=== PATIENT | female | born 1990 | race Caucasian/White ===

== ENCOUNTER 2019-08-11 02:48 | Inpatient (IN) ==
[2019-08-11] MEDS ORDERED: DUONEB (A & A) INH ONE (03:10)
--- NOTE | 2019-08-11 03:15 | PROVIDER DOCUMENTATION ---
HPI-Respiratory General - General Chief Complaint: Shortness of Breath Stated Complaint: CHEST PAIN/SOB/ Time Seen by Provider: 08/11/19 03:00 Source: patient Allergies/Adverse Reactions: Patient Allergies Allergy/AdvReac Type Severity Reaction Status Date / Time No Known Allergies Allergy Verified 08/11/19 03:34 Home Medications: Home Medication List Medication Instructions Recorded Confirmed Last Taken Type NK [No Home Medications] 08/11/19 08/11/19 Unknown History - History of Present Illness-Resp Nature of Presenting Problem: 29 y/o WF c/o SOB and pleuritic cp for the past 4 days and was seen at [facility] for same last night but isnt sure what diagnosis she was given. Paper work sent from [facility] shows she was diagnosed with viral syndrome and that hep panel was pending. Quality of Pain: reports: aching Severity in ED: reports: moderate Onset/Duration: reports: 4 days ago Timing: reports: still present Context: reports: recent URI Exposure: reports: unknown cause Cough Quality/Degree: reports: mild Current Respiratory Medication Therapy: Initiated see nurses note Modifying Factors: improves with: exertion Associated Symptoms: reports: chest pain/soreness, hurts to breathe Similar Symptoms Previously?: Yes Recently seen or treated by another doctor?: Yes (At [facility] ) Review of Systems - Adult - REVIEW OF SYSTEMS - ADULT Constitutional: reports: no symptoms reported, see HPI Eyes: reports: no symptoms reported, see HPI Ears, Nose, Mouth & Throat: reports: no symptoms reported, see HPI Cardiovascular: reports: no symptoms reported, see HPI Respiratory: reports: see HPI, shortness of breath Gastrointestinal: reports: no symptoms reported, see HPI Genitourinary: reports: no symptoms reported, see HPI Musculoskeletal: reports: no symptoms reported, see HPI Integumentary: reports: no symptoms reported, see HPI Neurological: reports: no symptoms reported, see HPI Psychiatric: reports: no symptoms reported, see HPI Endocrine: reports: no symptoms reported, see HPI Hematologic/Lymphatic: reports: no symptoms reported, see HPI Allergic/Immunologic: reports: no symptoms reported, see HPI All Other Systems: Reviewed and Negative Past History - Adult - PAST MEDICAL HISTORY-ADULT Review of Records: reports: Nursing Assessment Review, Medications Reviewed, Social history reviewed & non-contributory. Physical Exam-General - PHYSICAL EXAM-ADULT Initial Vital Signs Reviewed: Yes - CONSTITUTIONAL General Appearance: appears well, alert, no apparent distress - EYES Eyes: PERRL/EOMI - HEAD, EARS, NOSE, MOUTH & THROAT HENMT: normocephalic/atraumatic, moist mucous membranes - NECK Neck: non-tender, full range of motion, supple, normal inspection - RESPIRATORY Respiratory: chest non-tender, lungs clear, no accessory muscle use, respiratory distress (mild), increased rate - CARDIOVASCULAR Cardiovascular: normal peripheral pulses, regular rate, rhythm, no edema, no gallop, no JVD, no murmur - GASTROINTESTINAL (ABDOMEN) Abdominal Exam: normal bowel sounds, soft, no organomegaly, no pulsatile mass, tenderness (RUQ abdo tenderness), Rush's sign - LYMPHATIC Lymphatic: no adenopathy - MUSCULOSKELETAL Back Exam: normal inspection, no CVA tenderness, no vertebral tenderness Extremity: normal range of motion, non-tender, normal gait, normal inspection, no pedal edema, no calf tenderness, normal capillary refill - SKIN Integumentary: normal color, normal turgor - NEUROLOGIC 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, grossly normal, no motor/sensory deficits - PSYCHIATRIC Psych/Mental Status: normal mood/affect, normal thought content, normal thought process, oriented x 3 - HEART Score HEART Score: History: Slightly Suspicious HEART Score: ECG: Non-Specific Repolarization Disturbance/LBBB/PM HEART Score: Age: < or = 45 Years HEART Score: Risk Factors for Atherosclerotic Disease: No Risk Factors Known HEART Score: Troponin: < or = Normal Limit Total HEART Score:: 1 Progress - PLAN OF CARE/RESULTS Progress/Plan/Lab Results: Vital Signs - 8 hr 08/11/19 06:00 08/11/19 07:00 08/11/19 08:00 Temperature 98.2 F Pulse Rate 107 H 100 H 100 H Respiratory Rate 26 H 46 H 32 H Blood Pressure 118/57 O2 Sat by Pulse Oximetry 94 L 98 96 Laboratory Results - last 24 hr 08/11/19 08/11/19 08/11/19 03:10 03:10 03:39 WBC Cancelled RBC Cancelled Hgb Cancelled Hct Cancelled MCV Cancelled MCH Cancelled MCHC Cancelled RDW Std Deviation Cancelled Plt Count Cancelled MPV Cancelled Immature Gran % (Auto) Cancelled Neut % (Auto) Cancelled Lymph % (Auto) Cancelled [place] % (Auto) Cancelled Eos % (Auto) Cancelled Baso % (Auto) Cancelled Immature Gran # (Auto) Cancelled Neut # (Auto) Cancelled Lymph # (Auto) Cancelled [place] # (Auto) Cancelled Eos # (Auto) Cancelled Baso # (Auto) Cancelled Corrected WBC (Man) Cancelled PT INR PTT (Actin FS) D-Dimer, Quantitative Sodium Potassium Chloride Carbon Dioxide Anion Gap BUN Creatinine Estimated GFR/1.73 m2 BUN/Creatinine Ratio Glucose Calculated Osmolality Calcium Total Bilirubin AST ALT Alkaline Phosphatase Troponin T Yap-X-Frlqkuyovkh Pept Total Protein Albumin Globulin Albumin/Globulin Ratio Plasma Lactate Urine Source CLEAN CATCH Urine Color YELLOW Urine Turbidity TURBID Urine pH 6.0 Ur Specific [place] 1.022 Urine Protein 200 A Ur Glucose (Stick) NEGATIVE Ur Ketones (Stick) NEGATIVE Urine Blood MODERATE A Urine Nitrite NEGATIVE Urine Bilirubin MODERATE A Urobilinogen Dipstick NORMAL Urine Leukocytes NEGATIVE Urine WBC (Auto) 10-20 A Urine RBC (Auto) TNTC A U Epithel Cells (Auto) >10 A Urine Bacteria (Auto) 2+ Urine Opiates Screen NONE DETECTED Ur Oxycodone Screen NONE DETECTED Ur Methadone, Qual NONE DETECTED Ur Barbiturates Screen NONE DETECTED Ur Phencyclidine Scrn NONE DETECTED Ur Amphetamines Screen NONE DETECTED U Benzodiazepines Scrn NONE DETECTED Urine Cocaine Screen NONE DETECTED U Cannabinoids Screen NONE DETECTED 08/11/19 08/11/19 08/11/19 03:39 03:39 03:39 WBC RBC Hgb Hct MCV MCH MCHC RDW Std Deviation Plt Count MPV Immature Gran % (Auto) Neut % (Auto) Lymph % (Auto) [place] % (Auto) Eos % (Auto) Baso % (Auto) Immature Gran # (Auto) Neut # (Auto) Lymph # (Auto) [place] # (Auto) Eos # (Auto) Baso # (Auto) Corrected WBC (Man) PT INR PTT (Actin FS) D-Dimer, Quantitative 17.06 H Sodium 133 L Potassium 3.7 Chloride 97 L Carbon Dioxide 19 L Anion Gap 17 BUN 26 H Creatinine 1.1 H Estimated GFR/1.73 m2 59 BUN/Creatinine Ratio 24 Glucose 122 H Calculated Osmolality 272 Calcium 8.5 L Total Bilirubin 5.47 H AST 157 H ALT 94 H Alkaline Phosphatase 157 H Troponin T Ily-X-Adhqlahsmft Pept 175 Total Protein 5.8 L Albumin 3.9 Globulin 1.9 Albumin/Globulin Ratio 2.1 Plasma Lactate Urine Source Urine Color Urine Turbidity Urine pH Ur Specific [place] Urine Protein Ur Glucose (Stick) Ur Ketones (Stick) Urine Blood Urine Nitrite Urine Bilirubin Urobilinogen Dipstick Urine Leukocytes Urine WBC (Auto) Urine RBC (Auto) U Epithel Cells (Auto) Urine Bacteria (Auto) Urine Opiates Screen Ur Oxycodone Screen Ur Methadone, Qual Ur Barbiturates Screen Ur Phencyclidine Scrn Ur Amphetamines Screen U Benzodiazepines Scrn Urine Cocaine Screen U Cannabinoids Screen 08/11/19 08/11/19 08/11/19 03:39 04:05 04:05 WBC 1.98 L RBC 4.90 Hgb 14.5 Hct 40.6 MCV 82.9 MCH 29.6 MCHC 35.7 RDW Std Deviation 13.2 Plt Count 42 L MPV Not Reportable Immature Gran % (Auto) 0.0 Neut % (Auto) 77.8 H Lymph % (Auto) 13.1 L [place] % (Auto) 8.1 Eos % (Auto) 0.0 Baso % (Auto) 1.0 H Immature Gran # (Auto) 0.00 Neut # (Auto) 1.54 Lymph # (Auto) 0.26 L [place] # (Auto) 0.16 Eos # (Auto) 0.00 Baso # (Auto) 0.02 Corrected WBC (Man) PT INR PTT (Actin FS) D-Dimer, Quantitative Sodium Potassium Chloride Carbon Dioxide Anion Gap BUN Creatinine Estimated GFR/1.73 m2 BUN/Creatinine Ratio Glucose Calculated Osmolality Calcium Total Bilirubin AST ALT Alkaline Phosphatase Troponin T < 0.010 Bcq-Y-Uczucyfrjdh Pept Total Protein Albumin Globulin Albumin/Globulin Ratio Plasma Lactate 2.1 Urine Source Urine Color Urine Turbidity Urine pH Ur Specific [place] Urine Protein Ur Glucose (Stick) Ur Ketones (Stick) Urine Blood Urine Nitrite Urine Bilirubin Urobilinogen Dipstick Urine Leukocytes Urine WBC (Auto) Urine RBC (Auto) U Epithel Cells (Auto) Urine Bacteria (Auto) Urine Opiates Screen Ur Oxycodone Screen Ur Methadone, Qual Ur Barbiturates Screen Ur Phencyclidine Scrn Ur Amphetamines Screen U Benzodiazepines Scrn Urine Cocaine Screen U Cannabinoids Screen 08/11/19 08/11/19 08/11/19 04:05 08:27 11:30 WBC RBC Hgb Hct MCV MCH MCHC RDW Std Deviation Plt Count MPV Immature Gran % (Auto) Neut % (Auto) Lymph % (Auto) [place] % (Auto) Eos % (Auto) Baso % (Auto) Immature Gran # (Auto) Neut # (Auto) Lymph # (Auto) [place] # (Auto) Eos # (Auto) Baso # (Auto) Corrected WBC (Man) PT 18.2 H INR 1.48 PTT (Actin FS) 51.2 H D-Dimer, Quantitative Sodium Potassium Chloride Carbon Dioxide Anion Gap BUN Creatinine Estimated GFR/1.73 m2 BUN/Creatinine Ratio Glucose Calculated Osmolality Calcium Total Bilirubin AST ALT Alkaline Phosphatase Troponin T Bkj-R-Xxdsbeiklxo Pept Total Protein Albumin Globulin Albumin/Globulin Ratio Plasma Lactate 2.0 1.8 Urine Source Urine Color Urine Turbidity Urine pH Ur Specific [place] Urine Protein Ur Glucose (Stick) Ur Ketones (Stick) Urine Blood Urine Nitrite Urine Bilirubin Urobilinogen Dipstick Urine Leukocytes Urine WBC (Auto) Urine RBC (Auto) U Epithel Cells (Auto) Urine Bacteria (Auto) Urine Opiates Screen Ur Oxycodone Screen Ur Methadone, Qual Ur Barbiturates Screen Ur Phencyclidine Scrn Ur Amphetamines Screen U Benzodiazepines Scrn Urine Cocaine Screen U Cannabinoids Screen Orders Category Date Time Status Cardiac Monitoring DIRECTED Care 08/11/19 04:19 Active IV Insertion ORDERED Care 08/11/19 04:19 Completed Notify MD of + Sepsis Screen NOW Care 08/11/19 04:19 Completed Notify Physician As Ordered Care 08/11/19 04:19 Active Nursing- Obtain EKG ONCE Care 08/11/19 03:[address] ANGIOGRM PULMONARY ARTERIES [CT] Stat Exams 08/11/19 04:22 Completed LUNG SCAN / VQ [NM] Stat Exams 08/11/19 05:31 Completed US GB < RUQ (LIMITED) [US] Stat Exams 08/11/19 05:27 Completed cxr [CHEST-1 VIEW] [RAD] Stat Exams 08/11/19 03:01 Completed BLOOD CULTURE [BLDCUL] Stat Lab 08/11/19 05:02 Results CBC WITH ELECTRONIC DIFF [HEME] Stat Lab 08/11/19 04:05 Completed COMPREHENSIVE METABOLIC PANEL [CHEM] Stat Lab 08/11/19 03:39 Completed D-DIMER [COAG] Stat Lab 08/11/19 03:39 Completed LACTATE, PLASMA [CHEM] Lab 08/11/19 08:27 Completed LACTATE, PLASMA [CHEM] Lab 08/11/19 11:30 Completed LACTATE, PLASMA [CHEM] Q3H Lab 08/11/19 04:05 Completed PRO B-NATRIURETIC PEPTIDE Stat Lab 08/11/19 03:39 Completed PROTIME WITH INR [COAG] Stat Lab 08/11/19 04:05 Completed PTT [COAG] Stat Lab 08/11/19 04:05 Completed TROPONIN T Stat Lab 08/11/19 03:39 Completed URINALYSIS W/POSS RFLX CULT [URINALYSIS] Stat Lab 08/11/19 03:10 Completed URINE CULTURE [RM] Routine Lab 08/11/19 09:06 Received URINE DRUG SCREEN Stat Lab 08/11/19 03:10 Completed 0.9% Sodium Chloride Inj [Ns] 1,000 ml Med 08/11/19 05:33 Discontinued IV 999 mls/hr Albuterol 2.5MG/Ipratrop 0.5MG [Duoneb (A & A)] Med 08/11/19 03:10 Discontinued 3 ml INH NOW ONE Ondansetron [Zofran] Med 08/11/19 08:24 Discontinued 8 mg IV NOW ONE Aerosol Treatments Routine Oth 08/11/19 03:10 Completed Aerosol Treatments Stat Oth 08/11/19 03:10 Completed Oxygen Device Stat Oth 08/11/19 04:19 Completed EKG [EKG] Stat Ther 08/11/19 03:01 Draft Venous U/S Bilateral Legs Stat Ther 08/11/19 05:27 Completed Transfer/Admit Order [TRANSFER] Routine Transfer 08/11/19 13:03 Ordered Result Diagrams: 08/11/19 04:05 08/11/19 03:39 - EKG 1 Time of EKG reading by physician:: 03:42 EKG Read and Signed by:: Tello Rojas EKG Interpretation (*Must complete 3 of following elements*): Abnormal Rate: 105 Rhythm: sinus tachy Butler: normal QRS: normal DC Interval: normal ST Wave: normal - CT/MRI 1 CT Study: Angiogram (Discussed CTA with radiologist who noted that he was unable to rule out PTE.) - ULTRASOUND (By Radiology) 1 US Study: Gallbladder Impression: Abnormal (EXAM: US GB < RUQ (LIMITED) INDICATION: RUQ pain COMPARISON: None. FINDINGS: The gallbladder is contracted. The gallbladder vicente aren't thickened measuring up to 5 mm. However, this may be due to the contraction, at least in part. No shadowing gallstones are identified. The common bile duct is normal in diameter. Sonographic Rush's sign was reported to be negative. The liver echotexture is diffusely increased indicating hepatic steatosis. The liver is very mildly prominent measuring up to 18.7 cm in length. No discrete hepatic mass is identified. Portal venous flow is hepatopetal. The pancreas is obscured by bowel gas. Part of the aorta and IVC are obscured. The visualized portions are unremarkable. The right kidney is grossly unremarkable. IMPRESSION: 1.Thickened gallbladder wall. However, this may be, at least in part, because the gallbladder is contracted. No gallstones are identified. 2.Hepatic steatosis. Electronically signed by Linwood Alonso 08/11/2019 8:03 AM 08/11/19 0803 Interpreting Physician: Linwood Alonso MD Dictated Date/Time: 08/11/19 0758 cc: Tello Rojas MD; None,PCP) - CHANGE OF SHIFT REPORT (ED Provider) 1 Report Given and Care Transferred to:: Dr Crawofrd Time of Transfer: 07:00 Items Pending: Labs, XRAY Results, Other (VQ lung scan result) Departure - Departure Date of Disposition Decision: 08/11/19 Time of Disposition Decision: 13:30 DIAGNOSIS: Cholecystitis, Leukopenia Disposition: ADMITTED INPATIENT 09 Certified Medical Emergency: Emergent Condition: Good - Critical Care Note This patient required my direct & personal management of CC.: No Attestation - Physician/ SALMA Attestation Patient care was provided by Advanced Practice Provider:: No The physician spent face to face time with patient:: Yes Advanced Practice Provider documentation review:: Supervising physician onsite and consulted in the evaluation and care of this patient. The physician did have a face to face encounter with the patient.
--- NOTE | 2019-08-11 03:50 | EKG Report ---
Test Performed on : 08/11/2019 03:42:22 AM Test Reason : sob Blood Pressure : / mmHG Vent. Rate : 105 BPM Atrial Rate : 105 BPM P-R Int : 136 ms QRS Dur : 076 ms QT Int : 328 ms P-R-T Axes : 055 016 038 degrees QTc Int : 433 ms Sinus tachycardia. Otherwise normal ECG No previous ECGs available Unconfirmed Result
[2019-08-11 04:07] LABS: ALB/GLOB RATIO 2.1; ALBUMIN 3.9 g/dL (3.5-5.0); CALCIUM 8.5 mg/dL (8.8-10.2); CREATININE 1.1 mg/dL (0.5-0.9); POTASSIUM 3.7 mmol/L (3.5-5.1); TOTAL BILIRUBIN 5.47 mg/dL (0.20-1.00); TOTAL PROTEIN 5.8 g/dL (6.3-8.3)
[2019-08-11 04:29] LABS: URINE SOURCE CLEAN CATCH
[2019-08-11 04:41] LABS: BASO# 0.02 X1000 (0.0-0.2); HEMATOCRIT 40.6 % (37.0-47.0); HEMOGLOBIN 14.5 g/dL (12.0-16.0); LYMPH# 0.26 X1000 (1.2-3.4); LYMPH% 13.1 % (20.5-51.1); MCH 29.6 PG (27-31); MCHC 35.7 g/dL (33-37); MCV 82.9 FL (81-99); MONO# 0.16 X1000 (0.11-0.59); MONO% 8.1 % (1.7-9.3); NEUT# 1.54 X1000 (1.4-6.5); NEUT% 77.8 % (42.2-75.2); PLT 42 X1000 (130-400); RDW 13.2 % (11.5-14.5); WBC 1.98 X1000 (4.8-10.8)
[2019-08-11 04:52] LABS: UR AMPHETAMINES QUAL NONE DETECTED (NONE DETECT); UR BARBITUATES QUAL NONE DETECTED (NONE DETECT); UR BENZODIAZEPIN QUAL NONE DETECTED (NONE DETECT); UR CANNABINOIDS QUAL NONE DETECTED (NONE DETECT); UR COCAINE QUAL NONE DETECTED (NONE DETECT); UR METHADONE QUAL NONE DETECTED (NONE DETECT); UR OPIATES QUAL NONE DETECTED (NONE DETECT); UR OXYCODONE QUAL NONE DETECTED (NONE DETECT); UR PCP QUAL NONE DETECTED (NONE DETECT)
[2019-08-11 04:56] LABS: BILIRUBIN URINE MODERATE (NEGATIVE); BLOOD URINE MODERATE (NEGATIVE); COLOR YELLOW; GLUCOSE URINE NEGATIVE (NEGATIVE); KETONE URINE NEGATIVE (NEGATIVE); LEUKOCYTES URINE NEGATIVE (NEGATIVE); NITRITE URINE NEGATIVE (NEGATIVE); PROTEIN URINE 200 mg/dL (NEGATIVE); SP GRAVITY URINE 1.022; TURBIDITY URINE TURBID (CLEAR); UROBILINOGEN URINE NORMAL (NORMAL)
[2019-08-11 04:58] LABS: UR EPITHELIAL CELLS >10 /HPF (<10); URINE BACTERIA 2+ /HPF; URINE RBC TNTC /HPF (<10)
[2019-08-11 04:59] LABS: INR 1.48; PROTIME 18.2 Seconds (11.0-16.0)
[2019-08-11 05:00] LABS: PTT 51.2 Seconds (22.3-41.8)
--- NOTE | 2019-08-11 05:14 | Diag Imaging Result Doc PS360 ---
EXAM: CT ANGIOGRM PULMONARY ARTERIES HISTORY: difficulty breathing, left arm swollen TECHNIQUE: CT chest with intravenous contrast. Pulmonary arterial protocol with MIP images. COMPARISON: None. FINDINGS: Suboptimal opacification of the pulmonary arteries. No large filling defects in the main pulmonary arteries. No aortic aneurysm or dissection. No cardiomegaly. No pleural effusions. There are small mediastinal nodes. No infiltrates. No bronchiectasis. Limited images through the upper abdomen reveal pronounced fatty infiltration of the liver. The spleen is enlarged measuring at least 14.1 cm. Possible thickening of the gallbladder wall. IMPRESSION: 1.Suboptimal opacification of the pulmonary arteries. No large central pulmonary embolus. 2.Possible gallbladder wall thickening. Further imaging may be beneficial. 3.Hepatomegaly with fatty infiltration 4.Splenomegaly This exam was performed using automated exposure control, adjustment of mA or kV according to patient size, and/or use of iterative reconstruction technique. Electronically signed by Wilfred Jacob 08/11/2019 5:11 AM
[2019-08-11] MEDS ORDERED: NS 1,000 ML IV ONE (05:33)
--- NOTE | 2019-08-11 07:34 | Diag Imaging Result Doc PS360 ---
EXAM: CHEST-1 VIEW HISTORY: sob TECHNIQUE: Chest single view COMPARISON: None. FINDINGS: Poor inspiratory effort. The heart is not enlarged. The vessels are not distended. There are no infiltrates. No effusion identified. IMPRESSION: Negative exam. Electronically signed by Wilfred Jacob 08/11/2019 7:32 AM
--- NOTE | 2019-08-11 08:05 | Diag Imaging Result Doc PS360 ---
EXAM: US GB < RUQ (LIMITED) INDICATION: RUQ pain COMPARISON: None. FINDINGS: The gallbladder is contracted. The gallbladder vicente aren't thickened measuring up to 5 mm. However, this may be due to the contraction, at least in part. No shadowing gallstones are identified. The common bile duct is normal in diameter. Sonographic Rush's sign was reported to be negative. The liver echotexture is diffusely increased indicating hepatic steatosis. The liver is very mildly prominent measuring up to 18.7 cm in length. No discrete hepatic mass is identified. Portal venous flow is hepatopetal. The pancreas is obscured by bowel gas. Part of the aorta and IVC are obscured. The visualized portions are unremarkable. The right kidney is grossly unremarkable. IMPRESSION: 1.Thickened gallbladder wall. However, this may be, at least in part, because the gallbladder is contracted. No gallstones are identified. 2.Hepatic steatosis. Electronically signed by Linwood Alonso 08/11/2019 8:03 AM
[2019-08-11] MEDS ORDERED: ZOFRAN IV ONE (08:24)
--- NOTE | 2019-08-11 11:53 | Diag Imaging Result Doc PS360 ---
EXAM: LUNG SCAN / VQ 08/11/2019 HISTORY: possible PE TECHNIQUE: Ventilation/perfusion lung scan COMMENT: The patient received 41.2 mCi of technetium 99m DTPA aerosol for the ventilation portion the study and 5.5 mCi of technetium 99m MAA intravenously for the perfusion portion. There are no apparent perfusion defects. There is no evidence of ventilation/perfusion mismatch. IMPRESSION: Normal study. Electronically signed by Miguelito Douglas 08/11/2019 11:51 AM
[2019-08-11] MEDS ORDERED: ZOFRAN IV PRN (14:03)
[2019-08-11] MEDS ORDERED: VANCOMYCIN IV PER PHARMACY MISC SCH (14:03)
[2019-08-11] MEDS: ZOSYN 3.375 GM in NS 50 ML IV SCH ×2 (14:11→20:31)
[2019-08-11] MEDS: NS 1,000 ML IV SCH (14:11)
--- NOTE | 2019-08-11 14:13 | HISTORY AND PHYSICAL ---
HISTORY: Mrs. Salazar was admitted on 08/11/2019. Apparently, she went to the [facility] yesterday. She has had 4 days of feeling short of breath and fatigue and abdominal pain. She has not been able to eat very well she reported. She denies alcohol or illicit drugs. Really no significant past medical history that we can determine. She came to our emergency room. She is very lethargic, some nausea. She is not vomiting, but she complains of nausea and complains of being short of breath. FAMILY HISTORY: She does not report any known family medical problems. SOCIAL HISTORY: Negative for alcohol or tobacco. She does smoke maybe 2 or 3 cigarettes a day, but no illicit drugs. Denies marijuana, cocaine. She does have a dog and a cat. She did have some scratches on her lower legs. REVIEW OF SYSTEMS: Really not able to give us much but she feels like she has not been able to eat very much, poor appetite, nausea, abdominal pain that radiates across the mid abdomen, which seems to be more intense, shortness of breath even at rest.Cardiovascular: No chest pain or tachy palpitations GI/: Does not report any bleeding. She has had a little constipation. Endocrinologic/Hematologic: We do not have any history. PHYSICAL EXAMINATION: She is very lethargic, short of breath. Difficult for her to even answer questions because of her labored breathing. She complains of abdominal pain across the mid abdomen all the way across and is complaining of nausea. VITAL SIGNS: Temp 98.2 degrees, pulse 100, respirations 32, blood pressure 118/57. HEENT: Pupils are equal and round. Conjunctivae is pink, sclera is clear. No nasal mucosal lesions appreciated. She does have numerous piercing's in her lip and her nose and her ear. None of them appear to have surrounding inflammation or cellulitis. ABDOMEN: Soft, nondistended. She does have striae on both sides of the abdomen. LUNGS: Clear anterolateral. CARDIOVASCULAR: Regular rhythm rate without murmur or S3. PMI nondisplaced. Carotid, radial and femoral pulses 2+ and symmetrical. EXTREMITIES: No pedal edema. She has superficial scratch haney on both legs. I do not appreciate any other rash. LABORATORY DATA: White blood cell count 1980, hematocrit is 40, platelet count is 42,000. Sodium 133, potassium 3.7, chloride 97, BUN 26, creatinine 1.1, blood sugar 122, calcium 8.5, total bilirubin is 5.47, AST is 157, ALT is 94, alkaline phosphatase is 157. Urine drug screen negative for opiates, oxycodone, methadone, barbiturates, phencyclidine, amphetamines, benzodiazepines, cocaine, and cannabinoids. Urinalysis: Too numerous to count red blood cells, white blood cells, 10 to 20 2+ bacteria. Abdominal ultrasound: Thickened gallbladder wall, however, this may be a least in part because the gallbladder is contracted. No gallstones identified. Hepatic steatosis. Lung V/Q scan was normal study. No sign of pulmonary thromboemboli. Chest x-ray negative exam. Poor inspiratory effort. Heart was not enlarged. Vessels were not distended. No infiltrates or effusion identified. ASSESSMENT/PLAN: 1. Patient appears to be septic and with a low count, I am not sure if this is a viral syndrome or an overwhelming bacterial infection. We will cover empirically with Zosyn and with vancomycin. I am going to ask Dr. Holly to help us follow along. I think we are going to need to check CMV titers, mononucleosis titers, hepatitis profile and HIV status. She denies IV drugs. I did not ask her about sexual history. 2. Note that her prothrombin time is mildly elevated. INR is 1.48, PTT is 51, D-dimer 17 so we are going to check a DIC profile and will going to give her liberal fluids, give her normal saline run it at 125 mL an hour. We will give her some antiemetics using Zosyn, put her on just clear liquids for now as far as diet. We will check both of her legs to make sure there is no deep venous thrombosis. She does have an elevated D-dimer. cc: Teddy Guzman MD
[2019-08-11] MEDS ORDERED: VANCOMYCIN 2 GM in NS 500 ML IV SCH (16:00)
[2019-08-11 16:15] LABS: RETIC% 0.62 % (0.8-2.1); RETIC-HE 25.5 PG (28.2-36.6)
[2019-08-11 19:11] LABS: INR MIXING STUDY 0 MIN 1.04; INR MIXING STUDY 30 MIN 1.13; PROTIME MIXING STUDY 3O MIN 14.7 Seconds (9.2-11.7); PROTIME MIXING STUDY O MIN 13.7 Seconds (9.2-11.7); PTT MIXING STUDY O MIN 30.4 Seconds (22.0-36.0)
[2019-08-11 19:12] LABS: PTT MIXING STUDY 3O MIN 39.9 Seconds (22.0-36.0)
[2019-08-11 19:16] LABS: LEUKEMIA LYMPHOMA BY FLOW REFERRED FOR TESTING
[2019-08-11 19:17] LABS: FLOW CYTOMETERY SOURCE WHOLE BLOOD
--- NOTE | 2019-08-11 19:26 | INFECTIOUS DISEASE CONSULT REP ---
DATE: 08/11/2019 CONCLUSION: The patient I think has either cholecystitis and/or a urinary tract infection. RECOMMENDATIONS: I agree with treating the patient with Zosyn. I have discontinued vancomycin. I have ordered a HIDA scan also. DISCUSSION: The patient tells me approximately 5 days ago she began having dyspnea, chest pain, fever, and epigastric pain when she ate. Also she has right upper quadrant pain and tenderness. The patient's CBC shows a white count of 1980 with an absolute neutrophil count of 1540, hemoglobin is 14.5, platelet count is 42,000, creatinine is 1.1, GFR is 59, AST is 157, bilirubin is 5.47. Urinalysis shows white cells and bacteria. Drug screen is negative. Blood and urine cultures are pending. Lung scan was normal. Pulmonary angiogram shows a hepatomegaly, fatty liver and splenomegaly. Chest x-ray shows clear lung becerra. PAST MEDICAL HISTORY/REVIEW OF SYSTEMS: Eyes and ears: No trouble hearing or seeing. Neck: No stiffness. Respiratory: See present illness. Cardiac: No chest pain or palpitations. Gastrointestinal: See present illness. Genitourinary: No dysuria or flank pain. Bones, joints, muscles: No swollen joint or muscle aching. Neurologic: No seizures. No loss of motor or sensory function. PREVIOUS HOSPITALIZATIONS AND OPERATIONS: She recently was in [facility]. She also was hospitalized once with a left wrist fracture. MEDICAL DISEASES: Positive for morbid obesity and hypertension. INFECTIOUS DISEASE HISTORY: Positive for UTI. FAMILY HISTORY: Positive for cancer. SOCIAL HISTORY[place] She is single. She has cats and dogs for pets. She does not have a job. She smokes cigarettes. She does not drink alcoholic beverages or abuse drugs. PHYSICAL EXAMINATION: Vital Signs: Temperature is 98.2 degrees, pulse 92, respirations 14, blood pressure is 137/58. The patient weighs 264 pounds. General: This is an obese icteric young female. She is in no acute distress. Head, eyes, ears, nose, and throat: She has a piercing through her lip. There is no drainage from the nose or ears. I did not see any white patches on her tongue. Neck: No meningismus. Lungs: Clear to auscultation. Cardiovascular: Regular heart rate. Abdomen: The patient is tender in both upper quadrants. Neurologic: The patient is awake. She ambulates without difficulty. There is no tremor. Her memory as regarding her medical history seemed to be intact. Integument: No rash noted cc: Scot Holly MD
--- NOTE | 2019-08-11 20:01 | GENERAL SURGERY CONSULTATION ---
DATE: 08/11/2019 REASON FOR CONSULTATION: Abdominal pain. CONSULTING PHYSICIAN: Hospitalist, Dr. Guzman. HISTORY OF PRESENT ILLNESS: This is a 29-year-old female who has not felt well for the better part of last month. She has had some chest pain, shortness of breath, abdominal discomfort, came the ER for further evaluation. She is found to have neutropenia, thrombocytopenia with elevated D- dimer, elevated INR, elevated LFTs and elevated LDH. She is undergoing workup for myeloproliferative disorder. She had a pulmonary arteriogram that showed splenomegaly, hepatomegaly, gallbladder wall thickening possible but no evidence of gallstones. No evidence of pulmonary embolus. She had an abdominal ultrasound that showed thickened gallbladder wall but possibly related to contracted gallbladder, no gallstones. No biliary dilation. She had a V/Q scan is negative. Dr. Carver has been consulted. MEDICAL HISTORY: Negative. SURGICAL HISTORY: She has had oral surgery. SOCIAL HISTORY: She denies any intravenous drugs. She does smoke occasionally. Denies any other illicit drugs. She lives at home. FAMILY HISTORY: Is reviewed and noncontributory. REVIEW OF SYSTEMS: Ten point review of systems performed other than what mentioned in HPI. OBJECTIVE: She is afebrile, heart rate been high 90s, low 100s, blood pressure 137/58, oxygen 99%. She is 264 pounds, 5 foot 7.General: She is alert, appears to feel poorly but in no acute distress. HEENT: Is no scleral icterus. No cervical mass. Cardiovascular: Normal rate. Pulmonary: No increased work of breathing. Abdomen: Soft, nontender, nondistended. There is no clear organomegaly or masses. Integument: Warm, dry without jaundice. Psychiatric: Appropriate affect. Neurologic: Generalized weakness but no focal deficits. Peripheral vascular: She does have some lower extremity edema. Lymphatic: I do not feel any cervical, axillary or inguinal adenopathy. LABS: White count is 1.98, hematocrit 40, platelets 42,000, INR is 1.48. Her D-dimer 17.06 with fibrinogen of 232. Creatinine is 1.1, bilirubin is 5.47, AST, ALT and alkaline phosphatase are all elevated. LDH is 607. Urinalysis does show white blood cells in the urine. UDS is negative. Monospot was negative. I reviewed her imaging. ASSESSMENT AND PLAN: A 29-year-old female with most likely lymphoproliferative disorder. I suspect that her abdominal discomfort is related to splenomegaly and her hepatomegaly. She does not have peritonitis. Given her liver function tests and her hematologic abnormalities I suspect that these are all related. Would recommend getting a fractionated bilirubin to better define this but I do not suspect a biliary obstruction based off her imaging. She would be very high risk for further evaluation or management of gallbladder and I do not suspect cholecystitis this juncture. I do believe she is being covered preemptively with antibiotics and ongoing immunologic and hematologic workup is being performed. cc: Ehsan Otoole MD
[2019-08-11 20:10] LABS: INR MIXING STUDY 60 MIN 1.13; INR MIXING STUDY 90 MIN 1.15; PROTIME MIXING STUDY 6O MIN 14.7 Seconds (9.2-11.7); PTT MIXING STUDY 6O MIN 40.6 Seconds (22.0-36.0)
[2019-08-11 20:45] LABS: INR MIXING STUDY 120 MIN 1.13; PROTIME MIXING STUDY 12O MIN 14.6 Seconds (9.2-11.7)
[2019-08-12] MEDS: ZOSYN 3.375 GM in NS 50 ML IV SCH ×4 (01:57→22:12)
[2019-08-12] MEDS ORDERED: BLISTEX MEDICATED BERRY LIP BALM TOP PRN (02:01)
[2019-08-12] MEDS: NS 1,000 ML IV SCH ×3 (05:52→23:43)
[2019-08-12 06:22] LABS: ALB/GLOB RATIO 1.4; ALBUMIN 3.4 g/dL (3.5-5.0); BASO# 0.05 X1000 (0.0-0.2); BASO% 1.3 % (0.0-0.8); CALCIUM 7.6 mg/dL (8.8-10.2); CREATININE 1.4 mg/dL (0.5-0.9); HEMATOCRIT 41.2 % (37.0-47.0); HEMOGLOBIN 14.6 g/dL (12.0-16.0); IMM GRAN# 0.03 X1000 (0.0-0.04); IMM GRAN% 0.8 % (0.0-0.5); LYMPH# 0.77 X1000 (1.2-3.4); LYMPH% 20.2 % (20.5-51.1); MCH 29.4 PG (27-31); MCHC 35.4 g/dL (33-37); MCV 83.1 FL (81-99); MONO# 0.24 X1000 (0.11-0.59); MONO% 6.3 % (1.7-9.3); NEUT# 2.72 X1000 (1.4-6.5); NEUT% 71.4 % (42.2-75.2); PLT 45 X1000 (130-400); POTASSIUM 3.5 mmol/L (3.5-5.1); RBC 4.96 XMIL (4.2-5.4); RDW 13.7 % (11.5-14.5); TOTAL BILIRUBIN 7.14 mg/dL (0.20-1.00); TOTAL PROTEIN 5.8 g/dL (6.3-8.3); WBC 3.81 X1000 (4.8-10.8)
[2019-08-12] MEDS ORDERED: NS 250 ML ONE (09:16)
[2019-08-12 09:51] LABS: HIV ANTIBODY SCREEN SEE COMMENTS
--- NOTE | 2019-08-12 11:04 | INFECTIOUS DISEASE PROGRESS NO ---
DATE: 08/12/2019 PRESENT ILLNESS: I think the patient has cholecystitis and/or urinary tract infection. Patient's blood cultures and urine are pending. MEDICATION: This is day 1 of treatment with Zosyn. PHYSICAL EXAMINATION: Vital Signs: Temperature is 97.8 degrees, pulse 86, respirations 26, blood pressure 108/72. General: This is an ill-appearing young female. She is in no acute distress. Head/eyes/ears/nose/throat: She can hear my spoken words and see near objects. I did not see any white coating on her tongue. Neck: No meningismus. Lungs: Clear to auscultation. Cardiovascular: Regular heart rate. Abdomen: Abdomen was tender and had right upper quadrant pain. Neurologic: The patient is awake. She remained very serious throughout the examination. She did not talk much. She is able to move her extremities. LAB AND X-RAYS: Creatinine is 1.4. GFR is 44. CBC shows a white count of 3810, hemoglobin 14.6, and platelet count 45,000. I ordered a HIDA scan, but it is going to be put off to do until tomorrow. ASSESSMENT AND PLAN: I think the patient has cholecystitis and/or urinary tract infection. I am waiting for the results of the HIDA scan, and for now I plan to continue Zosyn. Also, I am awaiting the results of the patient's urine culture. For now, I plan to continue Zosyn. COMORBIDITY: Morbid obesity. cc: Scot Holly MD MTDD
--- NOTE | 2019-08-12 13:01 | CONSULTATION ---
DATE OF CONSULTATION: 08/12/2019 REASON FOR CONSULTATION: Abdominal pain. HISTORY OF PRESENT ILLNESS: Ms. Melania Salazar is a 29-year-old female, who came to the hospital with a complaints of shortness of breath, chest pain, fever, chills, dizziness, and throat pain. She looked very depressed and was not very enthusiastic about answering any questions. She said that her shortness of breath has been going on for the past 4 to 5 days, describes it as a sharp pain and has problems breathing. She complained of RUQ abdominal pain radiating to epigastric area, along with subjective ever, chills, sweats, dizziness. She also complained of dry mouth. She said she was able to drink liquids, but not able to eat any solid food. She mentioned that all of these symptoms started when her dad had brought food from outside, after eating it she felt sick. She denies anyone around her was sick. She is morbidly obese and stated that she gets easily fatigued when she exerts herself. Noticed tattoo on her right upper arm and has piercing under her lower lips. Her LFT's are elevated. PICC line has been placed in her left upper arm. PAST MEDICAL HISTORY: Obesity and smoker. SURGERIES: Tooth surgery on the right side. ALLERGIES: No known drug allergies. HOME MEDICATIONS: [place] FAMILY HISTORY: Her mom had cervical cancer and she is . No family history of GI malignancies. SOCIAL HISTORY: She is single, lives with the dad, has 2 sisters and 1 brother. She is currently unemployed, is a smoker and smokes 3 to 4 cigarettes a day, but has denied having drugs or alcohol. REVIEW OF SYSTEMS: As per the HPI. Otherwise, 12 point review of system is negative. PHYSICAL EXAM: Vital Signs: Temperature is 97.8 degrees, pulse is 86, respirations are 26, blood pressure is 108/72, oxygen saturation is 98% on room air. General: The patient is awake, alert, oriented, in no acute distress. HEENT: pale conjunctivae, icterus sclerae PERRL. Neck: Supple. Cardiac: Regular rate and rhythm. No murmurs, rubs, or gallops heard on auscultation. Lungs: Clear to auscultation in both anterior and posterior becerra. Abdomen: Soft, tender in the epigastric area, distended. Active bowel sounds heard. Rebound tenderness noted.Extremities: No clubbing, no cyanosis, no edema noted. Pulses 2+ present bilaterally. Neurologic: Alert, oriented x3. Nonfocal. Cranial nerves II to XII grossly intact. LABS: WBC of 3.81, RBC 4,96, hemoglobin 14.6, hematocrit is 41.2, platelet count is 45. PT is 18.2, PTT is 51.2, INR 1.48. Chemistry: Sodium is 135, potassium 3.5, chloride 100, carbon dioxide 19, anion gap is 16, BUN 30, creatinine is 1.4. Total bilirubin is 7.14, calcium is 7.6, AST is 188, ALT is 90, alkaline phosphate is 142. Lactate is 6 or 7. Albumin is 3.4 and vitamin B 12 is 1943. Urinalysis showed trace of protein, moderate blood, moderate bilirubin. Urine culture showed mixed mili. IMAGIN. Her lung V/Q scan showed normal study. 2. Abdominal ultrasound showed thickened gallbladder wall, no gallstones and hepatic steatosis. 3. Pulmonary CT angiogram: Pulmonary artery showed suboptimal opacification of the pulmonary arteries. Hepatomegaly with fatty infiltrates and splenomegaly. . 4. Chest x-ray showed negative exam. ASSESSMENT AND PLAN: 1. Abdominal pain 2. Chest pain 3. Shortness of breath 4. Obesity 5. Cholecystitis 6. Leukopenia PLAN: Ms. Melania Salazar is a 29-year-old female with no past medical history, but presented to the hospital with shortness of breath, chest pain, abdominal pain in the epigastric area. GI has been consulted for abdominal pain. HIDA scan is ordered for tomorrow. We have ordered the labs that includes [id number], smooth muscle antibodies, acute hepatic panel, ferritin levels, IGLESIA, total IgG and ceruloplasmin. Based on the findings of the HIDA scan and the lab results, we will decide the further plan of care. She is getting IV fluids NS @ 75, antibiotic Zosyn and antiemetic Zofran. We will continue to follow the plan of care per the primary team, oncologist and infectious disease team. This plan was discussed with Dr. Jason and the patient. Thank you for the consultation. Please call us with any questions or concerns. Dictated by ELZBIETA Beltran for Aj Jason MD I have seen and examined the patient. I have reviewed the labs, imaging, and other documentation. I discussed the case with Abbie Wooten NP and agree with the findings and plan as documented. I have made appropriate changes to note above. In brief, Ms. Melania Salazar is a 29 year old woman who presents with RUQ pain found to have labs showing cholestatic injury patient. She has RUQ TTP with ? positive Rush's sign. US showed thickened gallbladder wall. HIDA scan is pending. She is on abx. Chronic liver disease workup is pending. Patient denies any exposures. Trend LFTs daily. Will follow with you. MTDD
[2019-08-12 13:18] LABS: HEPATITIS PROFILE ACUTE SEE COMMENTS
--- NOTE | 2019-08-12 13:19 | HEMO/ONC CONSULTATION ---
DATE: 08/12/2019 HISTORY OF PRESENT ILLNESS: This is a 29-year-old female who has been in the [place] ER, and most recently our ER with a complaint of not feeling very well for over a month. She states that for the last 4-5 days, she has been feeling extremely short of breath with fatigue and abdominal pain. She has had some chest pain, shortness of breath. Upon evaluation in the ER, she was found to be neutropenic and thrombocytopenic with elevated D-dimer, elevated INR, elevated LFTs, and elevated LDH. The patient does not have any significant medical history. The patient is being admitted for further workup. PAST MEDICAL HISTORY: The patient denies any medical history. PAST SURGICAL HISTORY: She states she had some oral surgery. SOCIAL HISTORY: She states that she smokes on occasion. She denies alcohol or any other illicit drugs. FAMILY HISTORY: She states that her mother of cervical cancer, and her aunt has breast cancer. ALLERGIES: No known drug allergies. HOME MEDICATIONS: None. REVIEW OF SYSTEMS: Positive for nausea, fatigue, shortness of breath, abdominal pain, lack of appetite, chest pain, fever. PHYSICAL EXAMINATION: Vital Signs: Temperature 97.8 degrees, pulse rate 86, respiratory rate 26, blood pressure 108/72, O2 saturation 98% on room air. She is in 8/10 pain. General: This is an ill-appearing, obese female in no acute distress. She is morbidly obese with a BMI of 41.4. HEENT: Sclerae anicteric. PERRLA. Oral mucosa is normal. Conjunctivae pink and clear. Respiratory: Lungs are clear to auscultation. Cardiovascular: Normal S1, S2. Heart rate and rhythm is regular. Abdomen: Protuberant. Right upper quadrant pain. Upper quadrant tenderness. Extremities: No edema noted. Neurological: Awake, alert, and oriented x3. No focal motor deficits. The patient is slow to respond. LABORATORY DATA: WBCs 3.81, hemoglobin 14.6, hematocrit 41.2, platelet count 45,000. Reticulocyte count 0.62. Fibrinogen 232. D-dimer 17.06. Creatinine 1.4. Total bilirubin 7.14, AST 188, ALT 90, alkaline phosphate 142, LDH 607. Vitamin B12 of 1943, folate 15.3. HIV status nonreactive. [facility] screen negative. RADIOLOGY: Lung scan/V/Q normal study. Abdominal ultrasound: Thickened gallbladder wall. No gallstones. Hepatic steatosis. Pulmonary arteriogram: No pulmonary embolus. Hepatomegaly with fatty infiltration. Splenomegaly. Chest x-ray: Negative exam. ASSESSMENT: 1. Thrombocytopenia. 2. Leukopenia. 3. Suspected sepsis. PLAN: We are checking patient's laboratories. We are awaiting results from flow cytometry. We are following closely. Dictated by ELZBIETA Gupta for Devyn Carver MD Patient seen and examined. Peripheral blood reveals atypical lymphocytes. A abnormal immature cell is noted. Check flow cytometry. Splenomegaly is noted. She is being covered broadly with antibiotics. No evidence of DIC. Will follow with you. cc: Devyn Carver MD MTDD
--- NOTE | 2019-08-12 14:04 | GENERAL SURGERY PROGRESS NOTE ---
DATE: 08/12/2019 SUBJECTIVE: Hemodynamically stable overnight. She is still feeling poorly. No fevers. No tachycardia. Blood pressure this morning 108/72, oxygen 90%. General: She is alert. She has no obvious scleral icterus. Cardiovascular: Normal rate. Pulmonary: No increased work of breathing. Abdomen: Soft, nontender, nondistended. LABS: Reviewed. Her bilirubin is up again at 7.14. AST, ALT, and alkaline phosphatase remain elevated. White count is now 3.81, hematocrit 41, platelets 45,000. Creatinine is 1.4 and she has been seen by infectious disease as well as Hematology/Oncology. ASSESSMENT AND PLAN: A 29-year-old female admitted with neutropenia, thrombocytopenia, evidence of hepatic failure based off her INR and her LFTs. She denies any acetaminophen use. She does have fatty liver and she has an ongoing infectious workup with no obvious source. I have a low suspicion that this is gallbladder in etiology based off her studies today, her abdominal examination, and her history. I have ordered a fractionated bilirubin to determine the direct versus indirect component. Otherwise I would pursue the hematologic workup. We will follow along. cc: Ehsan Otoole MD
--- NOTE | 2019-08-12 16:04 | PROGRESS NOTE ---
DATE: 08/12/2019 SUBJECTIVE: Ms. Salazar feels a little better. She is a little less short of breath. OBJECTIVE: Vital Signs: She remains afebrile, temperature 98 degrees, pulse 84, respirations 22, blood pressure 122/67. Eyes: Pupils are equal and round. Lungs: Clear in all lung becerra. Cardiovascular exam: Regular rhythm and rate without murmur or S3. Abdomen: Soft. Says her abdomen is not as tender. Skin: Warm and dry. REVIEW OF LABS: Her labs compared to yesterday: White count is 3810 which is up from 1979 yesterday, hematocrit was 41 and it was 40 yesterday, platelet count 45. Her reticulocyte count was low at 25%; reticulocyte was 0.62. Electrolytes: Sodium 135, potassium 3.5, chloride 100, BUN 30, creatinine 1.4 which is up from 1.1 yesterday. Blood sugar 103, calcium 7.6. Ferritin level was high at 2501. LDH was 607. AST has come up from 157 to 188, ALT from 94 to 90, alkaline phosphatase 157 to 142. Pro time is 18.2 and PTT was 51, fibrinogen was 232, and D-dimer was high at 17. [place] screen was negative. HIV nonreactive and hepatitis profile nonreactive to A, B and C. Urine drug screen: Negative for opiates, oxycodone, methadone, barbiturates, phencyclidine, amphetamines, benzodiazepines, urine cocaine, and cannabinoids. ASSESSMENT AND PLAN: Thrombocytopenia, leukopenia. Ventilation perfusion scan was normal. She did have a thickened gallbladder wall; not sure if this was bone marrow dysfunction or a viral process. Pulmonary CT angiogram showed suboptimal opacification of the pulmonary arteries. No large central pulmonary embolus. Chest x-ray was unremarkable. We are going to continue current medications. She does have fatty liver. Continue infectious workup. She is on Zosyn 3.375 grams intravenous every 6 hours. cc: Teddy Guzman MD
[2019-08-13] MEDS: DEMEROL IV PRN ×2 (00:46→22:48)
[2019-08-13] MEDS: ZOSYN 3.375 GM in NS 50 ML IV SCH ×5 (04:15→21:05)
--- NOTE | 2019-08-13 09:50 | Diag Imaging Result Doc PS360 ---
HIDA SCAN W/O EJECT. FRACTION - 08/11/2019 INDICATION: cholecystitis TECHNIQUE: 6.2 mCi of Choletec was administered COMPARISON: None FINDINGS: There is good perfusion of the liver. However even after 100 minutes of imaging, there is no extraction or excretion of the radiotracer. The biliary system cannot be evaluated. IMPRESSION: Extremely poor hepatic extraction and excretion of bile. Consistent with hepatocellular dysfunction. Biliary system cannot be evaluated. Electronically signed by Chuck Hall 08/13/2019 9:47 AM
--- NOTE | 2019-08-13 12:07 | PROGRESS NOTE ---
DATE: 08/13/2019 SUBJECTIVE: Ms. Salazar is a 29 year old patient lying in bed, alert and oriented x3, but is reluctant and slow in answering the questions. She denies any nausea, vomiting, or diarrhea today. She had her HIDA scan done today. Her LFT's are elevated. OBJECTIVE: Vital Signs: Temperature 97.9 degrees, pulse 78, respirations 18, blood pressure 139/71, oxygen saturation 98% on room air. Her weight is 277. BMI is 43.5 kg/m2. General: She is alert and oriented x3. HEENT: Pale conjunctivae. Sclerae icteric. PERRL. Neck: Supple. Lungs: Clear to auscultation in the anterior and posterior becerra. Cardiovascular: Regular rate and rhythm. No gallops, rubs, or murmurs heard on auscultation. Abdomen: Soft. Tender in the epigastric area. Distended. Active bowel sounds heard in all four quadrants, Rebound tenderness noted. Extremities: No clubbing, cyanosis, or edema noted. Pulses 2+ present bilaterally. Neurological: Alert and oriented x3. LABORATORY DATA: WBC 3.81, RBC 4.6, hemoglobin is 14.6, hematocrit is 41.2, platelet count is 45,000. Coagulation: PT is 18.2, INR is 1.4, PTT 51.2. Chemistry: Sodium is 135, potassium 3.5, chloride 100, carbon dioxide is 19, anion gap 16, BUN 30, creatinine is 1.4, and calcium is 7.6, ferritin level is 2501, total bilirubin is 7.14, AST is 188, ALT is 90, alkaline phosphate is 142, her lactate is 602, albumin is 3.4, vitamin B12 is 1943. Urine showed trace of protein, moderate blood, moderate bilirubin, and WBCs and RBCs. SEROLOGY: Her CVM, IgM, and IgG showed negative. Hepatitis profile panel was nonreactive. Monoscreen was negative. HIV 1 and 2 antibody screen were nonreactive. IMAGING: HIDA scan without ejection fraction showed that she has extremely poor hepatic extraction and excretion of the bile, consistent with hepatocellular dysfunction. Biliary system could not be evaluated. V/Q scan showed normal study. Abdominal ultrasound showed thickened gallbladder. No gallstones identified. Hepatic steatosis. Pulmonary CT angiogram showed suboptimal opacification of the pulmonary arteries. Possible gallbladder wall thickening. Hepatomegaly with fatty infiltration. Splenomegaly. Chest x-ray: Negative exam. ASSESSMENT AND PLAN: 1. Abdominal pain. 2. Chest pain. 3. Shortness of breath. 4. Obesity. 5. Cholecystitis. 6. Leukopenia. 7. Elevated LFT's 8. Jaundice PLAN: Ms. Melania Salazar is a 29-year-old white female with no past medical history. She is on a regular diet at present. She has denied any nausea, vomiting, or diarrhea today. We have added another lab antimitochondrial Antibody for today, and we are waiting for her lab result for further plan of care. Avoid hepatotoxic drugs. She is on intravenous fluids, normal saline @ 75 mls/hr, antiemetic, Zofran, and she is getting antibiotic, Zosyn. We will continue with the plan of care as per her primary care team, oncologist, and Infectious Disease team. This plan was discussed with Dr. Godoy. Please call us for any further questions or concerns. Dictated by ELZBIETA Beltran for Pedro Godoy MD cc: Pedro Godoy MD I have seen and examined the patient myself and I agree with the above assessment and plan of care. Please call us with any further questions or concerns. MTDD
--- NOTE | 2019-08-13 13:02 | HEMO/ONC PROGRESS NOTE ---
DATE: 08/13/2019 SUBJECTIVE: The patient is sitting up in bed. She appears comfortable. She remains slow to remain to answer questions, without much expression. She does not appear to be short of breath. She states she feels a little bit better. She denies any nausea, vomiting, or diarrhea. OBJECTIVE: Vital Signs: Temperature 98.1 degrees, pulse rate 75, respiratory rate 20, blood pressure 151/69, O2 saturation 97% on room air. She is in 0/10 pain. Physical Examination: General: She is in no acute distress. Her affect is flat. HEENT: Sclerae are anicteric. PERRLA. Oral mucosa is normal. Conjunctivae pink and clear. Respiratory: Lungs are clear to auscultation. Normal respiratory effort. Cardiovascular: Normal S1, S2. Heart rate and rhythm are regular. Abdomen: Protuberant. Right upper quadrant pain. Bilateral upper quadrant tenderness. Extremities: No edema noted. Neurological: Awake, alert, and oriented x3. No focal motor deficits. The patient is slow to respond. Laboratory: No labs were drawn today. HIDA scan, pending results. Laboratory, flow cytometry pending. Hepatitis panel nonreactive and CMV negative. HIV negative. ASSESSMENT: 1. Thrombocytopenia, etiology unclear. 2. Leukopenia. 3. Suspected sepsis. PLAN: It appears that the patient has some degree of bone marrow suppression since her reticulocyte count is low. At this time, we are continuing to wait on flow cytometry results. There is no evidence of DIC. Mild splenomegaly is noted which could be contributing to leukopenia and thrombocytopenia. She is being covered broadly with antibiotics. We will continue to follow along with you. Dictated by ELZBIETA Gupta for Devyn Carver MD cc: Devyn Carver MD [email or web address]
[2019-08-13] MEDS: NS 1,000 ML IV SCH (13:51)
--- NOTE | 2019-08-13 19:31 | INFECTIOUS DISEASE PROGRESS NO ---
DATE: 08/13/2019 PRESENT ILLNESS: Ms. Salazar has a suspected cholecystitis and/or possible urinary tract infection. Blood cultures have been negative. However, the urine culture showed mixed mili. MEDICATIONS: She is receiving Zosyn 3.375 g IV every 6 hours. PHYSICAL EXAMINATION: Vital Signs: Temperature is 98.1 degrees, pulse rate 75, respiratory rate 20, blood pressure 151/69, O2 saturation is 97% on room air. General: This is a chronically ill- appearing, morbidly obese, young female. She is lying in the bed, currently in no acute distress, drowsy, but arousable. HEENT: Atraumatic, normocephalic. Oral mucous membranes are pink and moist. Conjunctivae are pink. Sclerae are icteric. Neck: Supple. Trachea is midline. Cardiovascular: Heart rate and rhythm are regular. Normal sinus rhythm on the monitor. Respiratory: Lung sounds are clear to auscultation bilaterally and diminished in the bases. No work of breathing is noted. Abdomen: Soft, obese, and tender to palpation to the right upper quadrant. Bowel sounds are active. Integumentary: Skin is warm and dry with multiple abrasions that look like scratches to her lower extremities. Neurologic: She is drowsy and lethargic, but arousable. She will nod her head appropriately at times, but is currently nonverbal. She is able to move her extremities independently. LABORATORY/X-RAY: No blood work available today. It looks like the HIDA scan could not be done due to hepatocellular dysfunction with no bile excretion. ASSESSMENT AND PLAN: Ms. Salazar has a possible cholecystitis, and is being followed by Dr. Otoole. At this point, we are unsure if that is the case due to the inability to complete the HIDA scan. She had mixed mili in her urine culture which sometimes is a contaminant. It looks like there is a urinary tract infection, based on her urinalysis, so we will try to get another urine culture. I have discussed with her how to obtain a clean-catch urine. The patient has an extremely flat affect and is nonverbal with me at this point. We will continue Zosyn pending the urine culture result. These plans have been discussed with and recommended by Dr. Holly. COMORBIDITIES: For Ms. Salazar include morbid obesity and cigarette smoking. Dictated by ELZBIETA Garcia for Scot Holly MD cc: Scot Holly MD [facility]ITALTomás
[2019-08-14] MEDS: NS 1,000 ML IV SCH ×2 (03:44→17:16)
[2019-08-14] MEDS: ZOSYN 3.375 GM in NS 50 ML IV SCH ×2 (03:45→09:08)
--- NOTE | 2019-08-14 08:13 | PROGRESS NOTE ---
DATE: 08/14/2019 Ms. Salazar is sleeping, resting comfortably, breathing comfortably. Report was last night she did not sleep much and was complaining of some prickling pain in her neck and could not get comfortable. OBJECTIVE: Vital Signs: Temp 97.4 degrees pulse 69, respirations 24 and blood pressure 149/74. HEENT: Pupils have been equal. Neck: No distended neck veins. Lungs: Clear anterior lateral. Cardiovascular: Regular rhythm and rate without murmur or S3. Abdomen: Is soft. Skin: Warm and dry. ASSESSMENT AND PLAN: 1. Suspect cholecystitis or possible urinary tract infection. Blood cultures have been negative, cultures did show mixed mili. She is on Zosyn 3.375 g q.6 hours. Suspect her transaminitis which could be related I guess to cholecystitis. Surgery is following. Infectious Disease is on the case. 2. Thrombocytopenia, etiology unclear. 3. Leukopenia, etiology unclear. 4. Suspect underlying sepsis. Unsure of the source. She was having some abdominal pain. She also had some chest pain and she did have an elevated bilirubin. She has really no significant past medical history. We are checking into mitochondrial antibody and going to avoid hepatotoxic drugs. Continue IV fluids. She does seem to be improving and her platelet count is 45,000. White blood cell count 3810, hematocrit 41, creatinine was 1.4, on admission is 1.1. Recheck liver functions, electrolytes, CBC in the morning. cc: Teddy Guzman MD
[2019-08-14 09:07] LABS: INR 1.19; PROTIME 15.3 Seconds (11.0-16.0)
[2019-08-14 09:20] LABS: BASO# 0.05 X1000 (0.0-0.2); EOS# 0.04 X1000 (0.0-0.7); EOS% 0.8 % (0.0-10.0); HEMATOCRIT 36.4 % (37.0-47.0); HEMOGLOBIN 12.7 g/dL (12.0-16.0); IMM GRAN# 0.17 X1000 (0.0-0.04); IMM GRAN% 3.3 % (0.0-0.5); LYMPH# 2.47 X1000 (1.2-3.4); MCH 29.5 PG (27-31); MCHC 34.9 g/dL (33-37); MCV 84.7 FL (81-99); MONO# 0.53 X1000 (0.11-0.59); MONO% 10.3 % (1.7-9.3); NEUT# 1.89 X1000 (1.4-6.5); NEUT% 36.6 % (42.2-75.2); PLT 56 X1000 (130-400); RDW 14.2 % (11.5-14.5); WBC 5.15 X1000 (4.8-10.8)
[2019-08-14 09:40] LABS: AGAP 11; ALB/GLOB RATIO 1.5; ALKALINE PHOSPHATASE 142 U/L (32-104); BUN 14 mg/dL (8-22); CALCIUM 7.4 mg/dL (8.8-10.2); CHLORIDE 104 mmol/L (98-107); COSMO 276; CREATININE 0.7 mg/dL (0.5-0.9); ESTIMATED GFR > 60; GLUCOSE 93 mg/dL (70-104); GOT 133 U/L (10-30); GPT 62 U/L (10-36); POTASSIUM 3.4 mmol/L (3.5-5.1); SODIUM 138 mmol/L (136-145); TCO2 23 mmol/L (25-35); TOTAL BILIRUBIN 6.97 mg/dL (0.20-1.00)
[2019-08-14 09:48] LABS: BANDS 2 % (0-1); EOS 4 % (1-10); LYMPHS 50 % (21-51); MONO 6 % (1-9); SEGS 38 % (42-75)
--- NOTE | 2019-08-14 12:25 | HEMO/ONC PROGRESS NOTE ---
DATE: 08/14/2019 SUBJECTIVE: The patient is asleep this morning. She appears comfortable, in no acute distress. Regular rate of breathing. She is difficult to arouse. She does not appear to want to answer any questions today. Her flat affect remains. OBJECTIVE: Vital Signs: Temperature 98.2 degrees, pulse rate 66, respiratory rate 18, blood pressure 125/79, O2 saturation 98% on room air. She is in 0/10 pain. PHYSICAL EXAMINATION: General: This patient is in no acute distress. Affect is flat. HEENT: Sclerae is anicteric. PERRLA. Oral mucosa is normal. Respiratory: Lungs are clear to auscultation. Normal respiratory effort. Cardiovascular: Normal S1, S2. Heart rate and rhythm is regular. Gastrointestinal: Protuberant. No mention of pain this morning. Extremities: No edema noted. Neurological: Awake, alert, oriented x3. Patient is slow to respond. Affect is flat. No focal motor deficits noted otherwise. LABORATORY DATA: WBCs 5.15, hemoglobin 12.7, hematocrit 36.4, platelet count 56,000. RADIOLOGY: HIDA scan without ejection fraction showed that she has extremely poor hepatic extraction and excretion of the bile. This is consistent with hepatocellular dysfunction. Biliary system could not be evaluated. ASSESSMENT: 1. Thrombocytopenia. 2. Leukopenia. 3. Suspected sepsis PLAN: The flow cytometry came back negative for leukemia/lymphoma. Labs negative for DIC. She has mild splenomegaly. At this time, we believe this is most likely an infectious process. Dictated by ELZBIETA Gupta for Devyn Carver MD cc: Devyn Carver MD [facility]
--- NOTE | 2019-08-14 13:33 | PROGRESS NOTE ---
DATE: 08/14/2019 SUBJECTIVE: The patient was lying in bed resting. She was sleepy, lethargic, reluctant and slow in answering questions. Denies any nausea, vomiting or diarrhea. She had a HIDA scan done yesterday, but they could not complete it and her liver function tests are still elevated. OBJECTIVE: Vital Signs: Temperature 98.2 degrees, pulse rate is 66, respirations are 18, blood pressure is 125/79, oxygen saturation is 98% on room air. Weight 268.6 pounds, BMI 42.2 kg per meter square. General: She is alert, oriented x3, and in no acute distress. HEENT: Pale conjunctivae. Sclerae icteric. PERRL. Neck: Supple. Lungs: Clear to auscultation in the anterior and posterior becerra. Cardiovascular: Regular rate and rhythm. No gallops, rubs or murmurs heard on auscultation. Abdomen: Soft, tender in the epigastric area, distended. Active bowel sounds heard in all 4 quadrants. Extremities: No clubbing, cyanosis or edema noted. Pulses 2+ present bilaterally. Neurologic: AO x3. LABORATORY DATA: WBC is 5.15, RBCs of 4.30, hemoglobin is 12.7, hematocrit is 36.4, platelet count is 56,000. PT is 18.2, INR is 1.48, PTT is 51.2. Chemistry, sodium is 138, potassium is 3.4, chloride is 104, carbon dioxide is 23, anion gap is 11, BUN is 14, creatinine is 0.7, calcium 7.4. Her total bilirubin is 6.97, AST is 133, ALT is 62, alkaline phosphate is 142. Urinalysis done on 08/11/2019 had shown trace of protein, moderate blood, with moderate bilirubin. Her IgG subclasses have shown that her total IgG is 582, IgG #1 is 336, IgG #2 is 168, IgG #3 is 24.3, and IgG #4 is 19.9, anti-smooth muscle AB showed negative. Serology, her CMV, A/B, IgG, IgM was negative. Hepatitis panel was nonreactive. Monoscreen was negative and the HIV 1 and 2 antibody screen was nonreactive. IMAGING: HIDA scan without ejection fraction impression has extremely poor hepatic extraction and excretion of the bile, consistent with hepatocellular dysfunction, biliary system could not be evaluated. Lung V/Q scan showed normal study. Abdominal ultrasound showed thickened gallbladder wall. No gallstones identified. Hepatic steatosis. Pulmonary angiogram showed suboptimal opacification of the pulmonary arteries, possible gallbladder wall thickening, hepatomegaly with fatty infiltration and splenomegaly. Chest x-ray showed negative exam. ASSESSMENT AND PLAN: 1. Abdominal pain 2. Chest pain/Shortness of breath 3. Obesity 4. Cholecystitis 5. Leukopenia 6. Elevated LFT's 7. Jaundice PLAN: Ms. Melania Salazar is a 29-year-old white female with no past medical history. She is on a regular diet at present. We are still awaiting for her lab result for further plan of care. She is on IV fluids, normal saline at 175, antiemetics, Zofran and antibiotic Zosyn. We will continue to follow the plan of care per primary care team, oncologist and the Infectious Disease team. This plan was discussed with Dr. Jason and the nursing staff. Please call us for any further questions or concerns. Dictated by ELZBIETA Beltran for Aj Jason MD I saw and examined the patient. I have reviewed labs, imaging, and note above by ELZBIETA Beltran and agree with the findings and the plan of care as documented. In brief, Ms. Melania Salazar is a 29 year old woman who presents with RUQ pain found to have labs showing cholestatic injury pattern. She had RUQ tenderness and thickening of gallbladder and fatty liver on US. Initial labs showed leukopenia and mild coagulopathy that has improved. Thrombocytopenia noted. She was seen by hematology and ID, without obvious heme or infectious etiology found. Antibiotics stopped. HIDA scan was inconclusive because tracker was not extracted into the biliary tract. AST/ALT and mildly improved. Bilirubin remains elevated. Chronic liver disease workup is negative to date. Will plan on MRCP to evaluate for biliary obstruction. Surgery is following. Will follow with you. Please call with questions. MTDD
--- NOTE | 2019-08-14 14:03 | INFECTIOUS DISEASE PROGRESS NO ---
DATE: 08/14/2019 PRESENT ILLNESS: I am uncertain as to what the patient's illness is. It does not appear that she has cholecystitis but Dr. Otoole is going to be following the patient for that. Her last urine culture was negative, so it does not look like she has a urinary tract infection. MEDICATIONS: The patient is on Zosyn. This is the third day of treatment with it. PHYSICAL EXAMINATION: Vital Signs: Temperature is 98.2, pulse 67, respirations 18, blood pressure 116/69. General: This is an obese young female. She is in no acute distress. Head/eyes/ears/nose/throat: Her eyes are closed. There is no drainage from the nose or ears. Neck: She did not seem to have any pain when I passively moved her neck. Lungs: Distant breath sounds but I did not hear any rales. Cardiovascular: Distant heart tones. I heard a regular heart rate, however. Abdomen: Soft and nontender. Neurologic: The patient's eyes are closed. She does not respond to verbal stimuli. She does not appear to be in any acute distress. There is no tremor. LAB AND X-RAY: There is no new radiographic study. The patient's CBC shows a white count of 5150, hemoglobin 12.7, and platelet count 56,000. Repeat urine culture is negative. Creatinine is 0.7. GFR is greater than 60. IgG is 582. CMV IgG and IgM antibodies are negative. Hepatitis panel is nonreactive. Infectious mononucleosis screen is negative. HIV antibody is nonreactive. ASSESSMENT AND PLAN: I am uncertain as to the patient's illness at this time. I do not think it is due to an infection. My plan now is to stop the patient's Zosyn. I am signing off her case but I am available to see the patient on a p.r.n. basis. COMORBIDITIES: The patient is morbidly obese and she smokes cigarettes. cc: Scot Holly MD
--- NOTE | 2019-08-14 14:07 | CONSULTATION ---
DATE OF CONSULTATION: 08/14/2019 Addendum HISTORY OF PRESENT ILLNESS: The patient's IGG level is 582. I think that because the level is only minimally reduced, and because the patient does not have a history of recurrent infections, IVIG replacement therapy is not warranted. cc: Scot Holly MD MTDD
[2019-08-15] MEDS: DEMEROL IV PRN (00:46)
[2019-08-15] MEDS: NS 1,000 ML IV SCH (06:09)
[2019-08-15 06:20] LABS: ESTIMATED GFR > 60
[2019-08-15 06:37] LABS: AGAP 10; ALB/GLOB RATIO 1.4; ALBUMIN 3.1 g/dL (3.5-5.0); ALKALINE PHOSPHATASE 157 U/L (32-104); BUN 10 mg/dL (8-22); C REACTIVE PROT QUANT 13.24 mg/L (0.00-5.00); CHLORIDE 102 mmol/L (98-107); COSMO 273; CREATININE 0.6 mg/dL (0.5-0.9); GLUCOSE 98 mg/dL (70-104); GOT 132 U/L (10-30); GPT 71 U/L (10-36); POTASSIUM 3.6 mmol/L (3.5-5.1); SODIUM 137 mmol/L (136-145); TCO2 25 mmol/L (25-35); TOTAL BILIRUBIN 7.11 mg/dL (0.20-1.00); TOTAL PROTEIN 5.3 g/dL (6.3-8.3)
[2019-08-15 06:42] LABS: BASO# 0.06 X1000 (0.0-0.2); BASO% 0.9 % (0.0-0.8); EOS# 0.12 X1000 (0.0-0.7); EOS% 1.8 % (0.0-10.0); HEMATOCRIT 36.9 % (37.0-47.0); HEMOGLOBIN 12.9 g/dL (12.0-16.0); IMM GRAN# 0.52 X1000 (0.0-0.04); IMM GRAN% 7.8 % (0.0-0.5); LYMPH# 2.93 X1000 (1.2-3.4); LYMPH% 44.1 % (20.5-51.1); MCH 29.4 PG (27-31); MCV 84.1 FL (81-99); MONO# 0.72 X1000 (0.11-0.59); MONO% 10.8 % (1.7-9.3); NEUT% 34.6 % (42.2-75.2); PLT 91 X1000 (130-400); RBC 4.39 XMIL (4.2-5.4); RDW 13.9 % (11.5-14.5); WBC 6.65 X1000 (4.8-10.8)
[2019-08-15 07:03] LABS: FREE T4 1.19 ng/dL (0.93-1.70)
[2019-08-15 07:07] LABS: TSH 5.92 uIUmL (0.27-4.20)
[2019-08-15 07:50] LABS: ANISOCYTOSIS 1+; BANDS 4 % (0-1); LYMPHS 41 % (21-51); MONO 4 % (1-9); SEGS 46 % (42-75)
[2019-08-15 09:48] LABS: SED RATE 4 mm/hr (0-20)
[2019-08-15 11:41] VITALS: BP 144/88
--- NOTE | 2019-08-15 11:51 | PROGRESS NOTE ---
DATE: 08/15/2019 SUBJECTIVE: Ms. Salazar is feeling better. She is hungry. I put her back on a regular diet. She remains afebrile. OBJECTIVE: Vital Signs: Temperature 98.3 degrees, pulse 63, respirations 17, blood pressure 142/72. Eyes: Pupils are equal and round. Lungs: Lungs are clear in all lung becerra. Cardiovascular exam: Regular rhythm and rate without murmur or S3. Extremities: There are small superficial abrasions on her lower legs; look like they have healed. ASSESSMENT AND PLAN: The patient's IgG level is 582; it is only minimally reduced, and she does not have a history of recurrent infections. Intravenous immunoglobulin therapy is probably not warranted. She had an illness, very sick. She has cholecystitis, but I am not sure that accounts for all of her symptomatology. It does not look like she had a urinary tract infection, but she presented with leukocytopenia and that has improved. Platelet counts have come up as well from 42,000 to 91,000. It really is more consistent with a viral type illness. She is improving. Advance her diet to regular diet. She is getting normal saline at 75 mL. Hopefully, she can go home soon. Cultures have not revealed anything. Blood cultures from 08/11 no growth, no growth in the urine. Urine only showed mixed mili. She had multiple small abrasions, and she says she has cats and dogs, but she had multiple little areas on her skin that appear to be healing well. cc: Teddy Guzman MD
--- NOTE | 2019-08-15 15:20 | DISCHARGE SUMMARY ---
ADMISSION DATE: 08/11/2019 DISCHARGE DATE: 08/15/2019 She has no primary care physician. She lives out in [facility]. This is a 29-year- old. Apparently she came from [facility] as she went there the day before admission, had 4 days of being short of breath and fatigue, abnormal abdominal pain and not able to eat. Denies any alcohol or illicit drugs. Really no significant past medical history at all. She does have several small cats and had multiple scratches on her lower leg. She also has dogs as well. She adamantly denies any possibility of or use of illicit drugs or anything changed or any other medications. She occasionally will take a Motrin. FAMILY HISTORY: No known medical problems. She is very lethargic and complaining of dyspnea when she came in. Her white count was concerning. White count was 1980 total, hematocrit 40, platelet count 42,000. She has her electrolytes sodium was 135, potassium 3.5, chloride 100, BUN 30, creatinine 1.4. She looks a little bit volume depleted. She said she had not been eating or drinking. Calcium is 7.6 with an underlying albumin of 3.4, AST 188, ALT 90, alkaline phosphatase 142. Repeat liver enzymes AST came down to 132, ALT from 90 to 171, her creatinine came down to 0.6, calcium was about 7.0, her hemoglobin, hematocrit remained stable. Hematocrit was 36, hemoglobin 12.9, platelet count came up from 42,000 set to 90,000. She was eating regular food and she wanted to go home. This appears to be consistent with a viral syndrome. Did not find any evidence of a bacterial infection. There was possibility of cholecystitis, possible urinary tract infection however she had no pain in her abdomen and her immunoglobulin was 582 which was really borderline, did not feel she would benefit from IV immunoglobulin. She is pretty adamant on wanting to go home. We have her on no antibiotics at this time. She has no medicine at home and so I will let her go home really no medications. FOLLOWUP: She does not have primary care. Encouraged to find a primary care, also encouraged to follow up in a couple weeks with Dr. Holly. cc: Teddy Guzman MD
--- NOTE | 2019-08-17 13:06 | Extremity Venous Study ---
PROCEDURE NAME: Venous U/S Bilateral Legs - 08/11/2019 RECOVERY AGENT: Arnol. REQUESTING PHYSICIAN: Dr. Rojas. INDICATIONS: Elevated D-dimer, shortness of breath. FINDINGS: The deep and superficial veins of the bilateral lower extremities were visualized along their course. All veins were compressible with forward flow, and no evidence of intraluminal thrombus. SUMMARY: No deep or superficial venous thrombosis seen in the bilateral lower extremities. cc: Ehsan Otoole MD
== END 2019-08-15 16:15 | disposition home or self-care (01) | DRG 866 ==
LOC: ED 02:48 → 2N 13:14
PROVIDERS: ATTEND Emergency Medicine